=== PATIENT | female | born 1985 | race Caucasian/White ===

== ENCOUNTER 2018-04-23 09:10 | Inpatient (IN) | payer OTHER ==
[2018-04-23] MEDS ORDERED: ONDANSETRON 4 MG TAB PO (10:30)
[2018-04-23] MEDS ORDERED: NACL 0.9% 3 ML SYG IV (10:30)
[2018-04-23] MEDS ORDERED: HYDROCODONE/APAP (5/325) TAB PO (10:30)
[2018-04-23] MEDS ORDERED: LORAZEPAM 2 MG INJ IV (10:30)
[2018-04-23] MEDS ORDERED: ZOLPIDEM 5 MG TAB PO (10:30)
[2018-04-23] MEDS ORDERED: ONDANSETRON 4 MG INJ IV (10:30)
[2018-04-23] MEDS ORDERED: DOCUSATE SODIUM 100 MG CAP PO (10:30)
[2018-04-23] MEDS: PANTOPRAZOLE (EC) 40 MG TAB PO (11:11)
[2018-04-23] MEDS: CEFTRIAXONE 2 GM/50 ML (PMX) 50 ML IVPB (11:20)
[2018-04-23] MEDS: ACETAMINOPHEN 325 MG TAB PO (20:21)
[2018-04-24] MEDS: PANTOPRAZOLE (EC) 40 MG TAB PO (05:38)
[2018-04-24 06:54] LABS: ADD MAN DIFF? NO
[2018-04-24 07:00] LABS: WHITE BLOOD COUNT 11.4 10^3/ul (4.8-10.8)
[2018-04-24 07:00] LABS: BASOPHILS % 0.4 % (0.0-2.0); EOSINOPHILS # 0.1 10^3/ul (0.0-0.5); EOSINOPHILS % 0.6 % (0.0-7.0); HEMOGLOBIN 13.7 g/dl (12.0-16.0); LYMPHOCYTES # 2.1 10^3/ul (0.8-2.9); LYMPHOCYTES % 18.5 % (15.0-51.0); MEAN CORPUSCULAR HEMOGLOBIN 32.2 pg (29.0-33.0); MEAN CORPUSCULAR HGB CONC 34.3 g/dl (32.0-37.0); MEAN CORPUSCULAR VOLUME 93.9 fl (82.0-101.0); MONOCYTE # 1.4 10^3/ul (0.3-0.9); MONOCYTES % 12.2 % (0.0-11.0); NEUTROPHIL # 7.7 10^3/ul (1.6-7.5); NEUTROPHILS % 67.7 % (39.0-77.0); PLATELET COUNT 257 10^3/UL (140-415); RED BLOOD COUNT 4.26 10^6/ul (4.20-5.40); RED CELL DISTRIBUTION WIDTH 12.4 % (11.5-14.5)
[2018-04-24 07:18] LABS: ANION GAP 13 (8-16); BLOOD UREA NITROGEN 10 mg/dl (7-20); CALCIUM 9.1 mg/dl (8.4-10.2); CARBON DIOXIDE 26 mmol/L (21-31); CHLORIDE 106 mmol/L (97-110); CREATININE 0.72 mg/dl (0.44-1.00); GLUCOSE 101 mg/dl (70-220); POTASSIUM 3.9 mmol/L (3.5-5.1); SODIUM 141 mmol/L (135-144)
[2018-04-24 07:59] LABS: HEMOGLOBIN A1C 5.2 % (0-5.9)
[2018-04-24] MEDS: CEFTRIAXONE 2 GM/50 ML (PMX) 50 ML IVPB (10:56)
[2018-04-25] MEDS: PANTOPRAZOLE (EC) 40 MG TAB PO (05:46)
[2018-04-25 07:10] LABS: ADD MAN DIFF? NO
[2018-04-25 07:12] LABS: WHITE BLOOD COUNT 11.5 10^3/ul (4.8-10.8)
[2018-04-25 07:12] LABS: BASOPHILS % 0.3 % (0.0-2.0); EOSINOPHILS # 0.1 10^3/ul (0.0-0.5); HEMATOCRIT 40.6 % (37.0-47.0); LYMPHOCYTES # 2.6 10^3/ul (0.8-2.9); LYMPHOCYTES % 22.4 % (15.0-51.0); MEAN CORPUSCULAR HEMOGLOBIN 32.3 pg (29.0-33.0); MEAN CORPUSCULAR HGB CONC 34.5 g/dl (32.0-37.0); MEAN CORPUSCULAR VOLUME 93.8 fl (82.0-101.0); MEAN PLATELET VOLUME 9.7 fl (7.4-10.4); MONOCYTE # 1.1 10^3/ul (0.3-0.9); MONOCYTES % 9.7 % (0.0-11.0); NEUTROPHIL # 7.6 10^3/ul (1.6-7.5); PLATELET COUNT 290 10^3/UL (140-415); RED BLOOD COUNT 4.33 10^6/ul (4.20-5.40); RED CELL DISTRIBUTION WIDTH 12.3 % (11.5-14.5)
== END 2018-04-25 10:50 | disposition home or self-care (01) | DRG 690 ==
LOC: MS4 09:10
DX: N39.0 Urinary tract infection, site not specified (principal); Z68.42 Body mass index [BMI] 45.0-49.9, adult; E66.01 Morbid (severe) obesity due to excess calories; R73.9 Hyperglycemia, unspecified; I51.7 Cardiomegaly
CPT/HCPCS: 80048; 83036; 85025; 87040; 87086